=== PATIENT | female | born 1960 | race Caucasian/White ===

== ENCOUNTER 2023-08-09 12:53 | Outpatient (CLI) | payer OTHER | END 2023-08-09 12:58 | disposition home or self-care (01) | LOC: MAMO-SONO 12:53 | PROVIDERS: ATTEND Obstetrics & Gynecology | DX: N64.4 Mastodynia (principal) ==

== ENCOUNTER → 2024-08-26 06:57 | Outpatient (CLI) | payer OTHER ==
[2024-08-26 07:22] LABS: PH,URINE 6.5 (5.0-8.0); URINE APPEARANCE Clear; URINE BILIRRUBIN Negative (NEGATIVE); URINE BLOOD Negative; URINE COLOR Yellow; URINE GLUCOSE Negative (NEGATIVE); URINE KETONE Negative (NEGATIVE); URINE LEUKOCYTE Small; URINE NITRATE Negative; URINE PROTEIN Trace (NEGATIVE); URINE UROBILINOGEN 0.2 E.U./dl
[2024-08-26 07:26] LABS: URINE BACTERIA 471.1 uL (0.0-1933); URINE EPITHELIAL CELLS 27.2 uL (0.0-38.8); URINE RBC 8.3 uL (0.0-20.8); URINE WBC 17.4 uL (0.0-23.2)
[2024-08-26 07:35] LABS: HEMATOCRIT 38.7 % (36.0-45.00); HEMOGLOBIN 13.1 g/dL (12.0-15.00); MEAN CELL VOLUME 82.1 fL (80.00-100.00); MEAN CORPUSCULAR HEMOGLOBIN 27.7 pg (27.00-32.0); MEAN CORPUSCULAR HGB CONC 33.8 g/dl (32.0-36.0); PLATELET COUNT 257 K/uL (150-450); RED BLOOD COUNT 4.72 M/uL (4.00-6.00); RED CELL DISTRIBUTION WIDTH 14.6 % (11.5-14.5)
[2024-08-26 07:42] LABS: URINE CAST 0.29 uL (0.0-1.40)
[2024-08-26 07:59] LABS: ALBUMIN 3.5 gm/dL (3.4-5.0); BILIRUBIN TOTAL 0.78 mg/dL (0.3-1.2); CALCIUM 9.3 mg/dL (8.5-10.1); CHOL HDL RATIO 4.3 (0-5.0); CREATININE SERUM 0.62 mg/dL (0.55-1.02); GFR 97.22; GLOBULINA 3.3 G/DL (2.4-3.5); POTASSIUM 3.76 mEq/L (3.5-5.1); TOTAL PROTEIN 6.8 gm/dL (6.4-8.2)
[2024-08-26 08:08] LABS: ob NEGATIVE (NEGATIVE)
== END | disposition home or self-care (01) ==
LOC: LAB 06:57
PROVIDERS: ATTEND Surgery
DX: R19.5 Other fecal abnormalities (principal)

== ENCOUNTER → 2024-09-09 06:50 | Outpatient (CLI) | payer OTHER ==
[2024-09-10 15:12] LABS: COMPLEMENT C3 166 mg/dL (82-167); COMPLEMENT C4 35 mg/dL (12-38)
[2024-09-11 11:12] LABS: DNA AB DOUBLE STRABDED 1 IU/mL (0-9)
== END | disposition home or self-care (01) ==
LOC: LAB 06:50
PROVIDERS: ATTEND Surgery
DX: M19.90 Unspecified osteoarthritis, unspecified site (principal); M32.9 Systemic lupus erythematosus, unspecified

== ENCOUNTER 2024-10-15 06:29 | Outpatient (CLI) | payer OTHER ==
[2024-10-15 08:19] LABS: T4 TOTAL 9.81 UG/DL (4.8-13.9); TSH 2.53 uIU/mL (0.358-3.74)
== END 2024-10-15 06:33 | disposition home or self-care (01) ==
LOC: LAB 06:29
PROVIDERS: ATTEND Surgery
DX: M19.90 Unspecified osteoarthritis, unspecified site (principal); I10 Essential (primary) hypertension; M06.9 Rheumatoid arthritis, unspecified

== ENCOUNTER 2024-10-15 07:21 | Outpatient (CLI) | payer OTHER | END 2024-10-15 07:22 | disposition home or self-care (01) | LOC: RAD 07:21 | DX: M06.9 Rheumatoid arthritis, unspecified (principal) ==